=== PATIENT | male | born 1965 | race African-American/Black ===

== ENCOUNTER 2021-05-22 10:34 | Emergency (ER) | payer OTHER ==
--- OUTSIDE RECORDS SUMMARY | 2021-05-22 10:37 | XMS REPORT | Continuity of Care Document ---
:1965 Author Organization [facility] t Address [address] [place] [address] Care Team Providers Name Role Phone SANTOS RAM Primary Care Physician Unavailable LUIZA Attending Clinician Unavailable LUIZA Attending Clinician Unavailable Andres PÉREZ, H Attending Clinician Payers Payer Name Policy Type Policy Number Effective Date Expiration Date [facility] [id number] 2017 00:00:00 PLUS Problems Condition Condition Condition Status Onset Resolution Last Treating Co mments Source Name Details Category Date Date Treatment Clinician Date Hypertensi Hypertensi Disease Active 2012-06 U nivers on on 06-16 ity of 00:00: [place] 00 [facility] Branch 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 0-05 it y of ciency ciency 00:00: [place] virus virus 00 Medical (HIV) (HIV) Branch disease disease Depression Depression Disease Active 2011-06 U nivers 0-05 ity of 00:00: [place] 00 Medical Branch Anxiety Anxiety Disease Active 2011-06 Univers 0-05 ity of 00:00: [place] 00 Medical Branch Allergies, Adverse Reactions, Alerts Allergy Allergy Status Severity Reaction(s) Onset Inactive Treating Comm ents Source Name Type Date Date Clinician NO KNOWN Drug Active Univers ALLERGIE Class ity of S [facility] Social History Social Habit Start Date Stop Date Quantity Comments Source History of tobacco Cigarette Smoker University of use [facility] History SDOH University o f Alcohol Frequency [place] edical Branch History SDOH University o f Alcohol Std Drinks [facility] History SDOH University o f Alcohol Binge [place] [facility] Branch Exposure to Not sure University of SARS-CoV-2 (event) [facility] Alcohol intake 2021-05-03 2021-05-03 .71 /d University of 00:00:00 00:00:00 [facility] Tobacco Comment 2012-03-07 2012-03-07 pt smokes 3-4 Univer sity of 00:00:00 00:00:00 cvig a day since [place] Me driscoll he was 27 years Branch old, usually with drinking Alcohol Comment 2012-03-07 2012-03-07 pt drinks a 6 Univer sity of 00:00:00 00:00:00 pack while [facility] watching a Branch football game, has been to rehab for etoh in past Tobacco use and 2012-02-28 2012-02-28 Never used Universit y of exposure 00:00:00 00:00:00 [facility] Cigarettes smoked 2012-02-28 2012-02-28 Univers ity of current (pack per 00:00:00 00:00:00 [facility] ) - Reported Branch Cigarette 2012-02-28 2012-02-28 University of pack-years 00:00:00 00:00:00 [facility] Sex [birth year] At [birth year] Universit y of 00:00:00 00:00:00 [facility] Smoking Status Start Date Stop Date Source Current every day smoker 2012-02-28 00:00:00 Uni versity of [facility] Medications Ordered Filled Start Stop Current Ordering Indication Dosage Frequency Signature Comments Components Source Medication Medication Date Date Medication? Clinician (SIG) Name Name cyclopentol 2020-06 Yes [id number] 1[drp] Place 1 Univers ate 1 % 07-04 [id number] Drop in ity of ophthalmic 00:00: left eye 4 [place] drops 00 (four) Medical times Branch daily. prednisoLON 2020-06 Yes [id number] 1[drp] Place 1 Univers E acetate 07-04 [id number] Drop in ity o f (PRED 00:00: left eye 4 [place] FORTE) 1 % 00 (four) Medical ophthalmic times Branch suspension daily. drops cyclopentol 2020-06 Yes [id number] 1[drp] Place 1 Univers ate 1 % 07-04 [id number] Drop in ity of ophthalmic 00:00: left eye 4 [place] drops 00 (four) Medical times Branch daily. prednisoLON 2020-06 Yes [id number] 1[drp] Place 1 Univers E acetate 2- [id number] Drop in ity o f (PRED 00:00: left eye 4 [place] FORTE) 1 % 00 (four) Medical ophthalmic times Branch suspension daily. drops polymyxin B 2020-06 Yes [id number] 1[drp] Place 1 Univers sulf-trimet - [id number] Drop in ity of hoprim 00:00: left eye [place] 10,000 00 every 4 Medical unit- 1 (four) Branch mg/mL hours. ophthalmic drops erythromyci 2020-06 Yes [id number] .5[in_u Place 0.5 Univers n 5 mg/gram - [id number] s] Inches in i ty of (0.5 %) 00:00: left eye [place] ophthalmic 00 at Medical ointment bedtime. Branch polymyxin B 2020-06 Yes [id number] 1[drp] Place 1 Univers sulf-trimet - [id number] Drop in ity of hoprim 00:00: left eye [place] 10,000 00 every 4 Medical unit- 1 (four) Branch mg/mL hours. ophthalmic drops erythromyci 2020-06 Yes [id number] .5[in_u Place 0.5 Univers n 5 mg/gram - [id number] s] Inches in i ty of (0.5 %) 00:00: left eye [place] ophthalmic 00 at Medical ointment bedtime. Branch levoFLOXaci 2020-06 Yes [id number] 750mg Take 1 Univers n 0-20 tablet by ity of (LEVAQUIN) 00:00: mouth [place] 750 mg 00 every 24 Medical tablet (twenty-fo Branch ur) hours. levoFLOXaci 2020-06 Yes [id number] 750mg Take 1 Univers n 0-20 tablet by ity of (LEVAQUIN) 00:00: mouth [place] 750 mg 00 every 24 Medical tablet (twenty-fo Branch ur) hours. buPROPion Yes [id number] 150mg Take 1 Univers SR 5-27 tablet by ity of (WELLBUTRIN 00:00: mouth 2 [place] as SR) 150 mg 00 (two) Medical SR tablet times Branch daily. abacavir-do Yes [id number] 1{tbl} Take 1 Univers lutegravir- 5-27 tablet by ity of lamivudine 00:00: mouth [place] (TRIUMEQ) 00 daily. Medical 600-50-300 Branch mg per tablet buPROPion Yes [id number] 150mg Take 1 Univers SR 5-27 tablet by ity of (WELLBUTRIN 00:00: mouth 2 [place] SR) 150 mg 00 (two) Medical SR tablet times Branch daily. abacavir-do Yes [id number] 1{tbl} Take 1 Univers lutegravir- 5-27 tablet by ity of lamivudine 00:00: mouth [place] (TRIUMEQ) 00 daily. Medical 600-50-300 Branch mg per tablet Immunizations Ordered Filled Immunization Date Status Comments [facility] e Immunization Name Name Influenza Virus 2020-03-31 Completed Universit y of Vaccine Quad .5 mL 00:00:00 [facility] IM 6+ MO Branch Influenza Virus 2020-03-31 Completed Universit y of Vaccine Quad .5 mL 00:00:00 [facility] 6+ MO Branch Influenza Virus 2016-09-27 Completed Universit y of Vaccine Quad ID 00:00:00 [facility] Planol 18-64 YRS Branch Influenza Virus 2016-09-27 Completed Universit y of Vaccine Quad ID 00:00:00 [facility] ical 18-64 YRS Branch Pneumococcal 13 2014-11-11 Completed Universit y of Conjugate, PCV13 00:00:00 [facility] dical (Prevnar 13) Branch Pneumococcal 13 2014-11-11 Completed Universit y of Conjugate, PCV13 00:00:00 [facility] dical (Prevnar 13) Branch Influenza Virus 2014-04-15 Completed Universit y of Vaccine Quad IM 3+ 00:00:00 [facility] [place] [facility] Branch Influenza Virus 2014-04-15 Completed Universit y of Vaccine Quad IM 3+ 00:00:00 [facility] [place] [facility] Branch Influenza Virus 2013-04-16 Completed Universit y of Vaccine (3+ yrs) 00:00:00 [facility] Branch TDAP (ADACEL) 2013-04-16 Completed University of VACCINE 00:00:00 [facility] Twinrix (hep a/hep 2013-04-16 Completed Univ sity of b) 00:00:00 [facility] Pneumococcal 2013-04-16 Completed University o f Polysaccharide, 00:00:00 [facility] PPSV23 (PNEUMOVAX) Branch Influenza Virus 2013-04-16 Completed Universit y of Vaccine (3+ yrs) 00:00:00 [facility] dical Branch TDAP (ADACEL) 2013-04-16 Completed University of VACCINE 00:00:00 [facility] Twinrix (hep a/hep 2013-04-16 Completed Univer sity of b) 00:00:00 [facility] Pneumococcal 2013-04-16 Completed University o f Polysaccharide, 00:00:00 [facility] ical PPSV23 (PNEUMOVAX) Branch Hep B, Adol or Pedi 2012-08-11 Completed Unive rsity of Dosage 00:00:00 [facility] Hep B, Adol or Pedi 2012-08-11 Completed Unive rsity of Dosage 00:00:00 [facility] Hep B, Adol or Pedi 2012-07-07 Completed Unive rsity of Dosage 00:00:00 [facility] HEPATITIS A 2012-07-07 Completed University of 00:00:00 [facility] Hep B, Adol or Pedi 2012-07-07 Completed Unive rsity of Dosage 00:00:00 [facility] HEPATITIS A 2012-07-07 Completed University of 00:00:00 [facility] Influenza Virus 2012-02-28 Completed Universit y of Vaccine 00:00:00 [facility] PPD (TB) 2012-02-28 Completed University of 00:00:00 [facility] Influenza Virus 2012-02-28 Completed Universit y of Vaccine 00:00:00 [facility] PPD (TB) 2012-02-28 Completed University of 00:00:00 [facility] Vital Signs Vital Name Observation Time Observation Value Comments Source Body weight 2021-05-03 20:08:00 86.183 kg [facility] BMI 2021-05-03 20:08:00 25.07 kg/m2 [facility] Procedures This patient has no known procedures. Encounters Start End Encounter Admission Attending Care Care Encounter Source Date/Time Date/Time Type Type Clinicians Facility Department ID 2021-05-24 2021-05-24 Outpatient R SHA JARRETT [facility] [id number] Univers 14:30:00 14:30:00 SHA JARRETT [id number] ity of [facility] 2021-05-24 2021-05-24 Outpatient R SHA JARRETT [facility] [id number] Univers 14:30:00 14:30:00 SHA JARRETT [facility] [place] 2021-05-09 2021-05-09 Outpatient R MAURISIO JARRETTUKA [facility] [id number] Univers 09:30:00 09:30:00 SHA JARRETT [facility] [place] 2021-05-03 2021-05-03 Office Andres [facility] [id number] Univers 13:28:48 15:09:28 Visit Francisco LOPEZ [id number] itSandeep [id number] [facility] [id number] [facility] AND [address] [facility] Results This patient has no known results.
--- NOTE | 2021-05-22 11:24 | ER ---
Nurse's Notes [facility] Name: Sage Llamas Age: 56 yrs Sex: Male : 1965 Arrival Date: 05/22/2021 Time: 10:40 Bed 10 Private MD: Diagnosis: Panuveitis, bilateral Presentation: 05/22 10:53 Chief complaint: Patient states: Bilateral eye pain and blurry after starting ww Prednisone and Cyclopentoplate eye drops. He went to [facility] for a migraine and prescribed RX. Coronavirus screen: Vaccine status: Patient reports receiving the 2nd dose of the covid vaccine. Client denies travel out of the [place] in the last 14 days. Ebola Screen: Patient negative for fever greater than or equal to 101.5 degrees Fahrenheit, and additional compatible Ebola Virus Disease symptoms Patient denies exposure to infectious person. Patient denies travel to an Ebola-affected area in the 21 days before illness onset. Initial Sepsis Screen: Does the patient meet any 2 criteria? No. Patient's initial sepsis screen is negative. Does the patient have a suspected source of infection? No. Patient's initial sepsis screen is negative. Risk Assessment: Do you want to hurt yourself or someone else?. Onset of symptoms is unknown. 10:53 Method Of Arrival: Ambulatory ww 10:53 Acuity: MAINE 3 ww Triage Assessment: 10:58 General: Appears comfortable, well groomed, well developed, Behavior is calm, ww cooperative, appropriate for age. Pain: Complains of pain in right eye and left eye. EENT: Reports blurred vision pain photophobia. Neuro: Level of Consciousness is awake, alert, obeys commands, Oriented to person, place, time, situation, Appropriate for age Speech is normal. Cardiovascular: Denies chest pain, shortness of breath, Capillary refill < 3 seconds. Respiratory: Airway is patent Respiratory effort is even, unlabored, Respiratory pattern is regular, symmetrical. GI: No deficits noted. No signs and/or symptoms were reported involving the gastrointestinal system. : No deficits noted. No signs and/or symptoms were reported regarding the genitourinary system. Derm: No deficits noted. No signs and/or symptoms reported regarding the dermatologic system. Skin is intact, Skin is pink, warm \T\ dry. Musculoskeletal: No deficits noted. Historical: - Allergies: 10:58 No Known Allergies; ww - PMHx: 10:58 Migraine; Hypertensive disorder; ww - PSHx: 10:58 None; ww - Immunization history:: Client reports receiving the 2nd dose of the Covid vaccine. - Social history:: Smoking status: Patient reports the use of cigarette tobacco products, smokes one-half pack cigarettes per day. Screenin:24 Abuse screen: Denies threats or abuse. Nutritional screening: No deficits noted. ap3 Tuberculosis screening: No symptoms or risk factors identified. Fall Risk None identified. Vital Signs: 10:53 BP 107 / 68; Pulse 99; Resp 18; Temp 97.5; Pulse Ox 100% ; Weight 86.18 kg; Height 6 ww ft. 1 in. (185.42 cm); 10:53 Body Mass Index 25.07 (86.18 kg, 185.42 cm) ED Course: 10:40 Patient arrived in ED. rg4 10:58 Triage completed. ww 10:58 Arm band placed on left wrist. ww 11:03 Anibal Diaz PA is PHCP. Codie 11:03 Billy Sheldon MD is Attending Physician. 8 11:22 Rose Trujillo, RN is Primary Nurse. ap3 11:24 Patient has correct armband on for positive identification. Bed in low position. Call ap3 light in reach. Side rails up X 1. Pulse ox on. NIBP on. Door closed. Noise minimized. 11:24 No provider procedures requiring assistance completed. Patient did not have IV access ap3 during this emergency room visit. Administered Medications: No medications were administered Outcome: 11:23 Discharge ordered by . jr8 11:26 Discharged to home ambulatory. ap3 11:26 Condition: good 11:26 Discharge instructions given to patient, Instructed on discharge instructions, follow up and referral plans. Demonstrated understanding of instructions, follow-up care. 11:27 Patient left the ED. ap3 Signatures: Anibal Diaz PA PA 8 Dora Bishop 4 Rose Trujillo, TOSHIA RN ap3 Kareen Hunter RN RN
--- NOTE | 2021-05-22 11:24 | EDPHYS ---
Physician Documentation [facility] Name: Sage Llamas Age: 56 yrs Sex: Male : 1965 Arrival Date: 05/22/2021 Time: 10:40 Bed 10 Private MD: ED Physician Billy Sheldon HPI: 05/22 11:44 This 56 yrs old Black Male presents to ER via Ambulatory with complaints of Eye Problem.jr8 11:44 This is a 56-year-old male that presented to the emergency room for reevaluation of eye jr8 pain. Patient stated that he was recently diagnosed with iritis/uveitis by [facility] ophthalmology. Was started on cycloplegics and prednisone. Came to the emergency room today for reevaluation. Stated that he continues to have a mild blurriness to his vision but otherwise nothing else has changed. Did say that his right eye has now shown some symptoms. Currently was only being treated with his left eye. 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 Historical: - Allergies: 10:58 No Known Allergies; ww - PMHx: 10:58 Migraine; Hypertensive disorder; ww - PSHx: 10:58 None; ww - Immunization history:: Client reports receiving the 2nd dose of the Covid vaccine. - Social history:: Smoking status: Patient reports the use of cigarette tobacco products, smokes one-half pack cigarettes per day. ROS: 11:44 Constitutional: Negative for fever, chills, and weight loss, Cardiovascular: Negative jr8 for chest pain, palpitations, and edema, Respiratory: Negative for shortness of breath, cough, wheezing, and pleuritic chest pain, Abdomen/GI: Negative for abdominal pain, nausea, vomiting, diarrhea, and constipation, Back: Negative for injury and pain, MS/Extremity: Negative for injury and deformity, Skin: Negative for injury, rash, and discoloration, Neuro: Negative for headache, weakness, numbness, tingling, and seizure. 11:44 Eyes: Positive for blurry vision, pain, photophobia. Exam: 11:44 Visual Acuity: Visual acuity is within normal limits. jr8 11:44 Cardiovascular: Regular rate and rhythm with a normal S1 and S2. No gallops, murmurs, or rubs. Normal PMI, no JVD. No pulse deficits. Respiratory: Lungs have equal breath sounds bilaterally, clear to auscultation and percussion. No rales, rhonchi or wheezes noted. No increased work of breathing, no retractions or nasal flaring. Abdomen/GI: Soft, non-tender, with normal bowel sounds. No distension or tympany. No guarding or rebound. No evidence of tenderness throughout. Skin: Warm, dry with normal turgor. Normal color with no rashes, no lesions, and no evidence of cellulitis. MS/ Extremity: Pulses equal, no cyanosis. Neurovascular intact. Full, normal range of motion. Neuro: Awake and alert, GCS 15, oriented to person, place, time, and situation. Motor strength 5/5 in all extremities. Sensory grossly intact. 11:44 Eyes: Periorbital structures: appear normal, Pupils: equal, round, and reactive to light and accomodation, Extraocular movements: intact throughout, Conjunctiva: normal, Corneas: are normal, Sclera: no appreciated abnormality, Anterior chamber: normal, Lids and lashes: appear normal. Vital Signs: 10:53 BP 107 / 68; Pulse 99; Resp 18; Temp 97.5; Pulse Ox 100% ; Weight 86.18 kg; Height 6 ww ft. 1 in. (185.42 cm); 10:53 Body Mass Index 25.07 (86.18 kg, 185.42 cm) ww MDM: 11:03 Patient medically screened. jr8 11:21 Data reviewed: vital signs, nurses notes. Data interpreted: Pulse oximetry: on room air jr8 is 100 %. Interpretation: normal. Counseling: I had a detailed discussion with the patient and/or guardian regarding: the historical points, exam findings, and any diagnostic results supporting the discharge/admit diagnosis, the need for outpatient follow up, an opthalmologist, to return to the emergency department if symptoms worsen or persist or if there are any questions or concerns that arise at home. ED course: After discussing with patient. It appears that patient has an acute iritis/uveitis. Patient is currently on cycloplegic and prednisone for this. I explained to him that there is not much more we can do until he sees his sheet rock installer again which she is to see them this Saturday at 230. There has been no new presentation of symptoms. I discussed with him if he were to worsening point time to come back for further evaluation. Patient good with this at this time.. Administered Medications: No medications were administered Disposition Summary: 05/22/21 11:23 Discharge Ordered Location: Home jr8 Problem: new jr8 Symptoms: are unchanged jr8 Condition: Stable jr8 Diagnosis - Panuveitis, bilateral jr8 Followup: jr8 - With: Private Physician - When: 1 - 2 days - Reason: Recheck today's complaints, Continuance of care, Re-evaluation by your physician Discharge Instructions: - Discharge Summary Sheet jr8 - Uveitis jr8 Forms: - Medication Reconciliation Form jr8 - Thank You Letter jr8 - Antibiotic Education jr8 - Prescription Opioid Use jr8 Addendum: 05/23/2021 18:44 Co-signature as Attending Physician, Billy Sheldon MD I agree with the assessment and c [place] plan of care. Signatures: Billy Sheldon MD MD cha Roszak, Josh, PA PA jr8 Kareen Hunter, RN RN ww
[2021-05-22 11:34] VITALS: BP 107/68; TEMP 97.5; O2SAT 100
== END 2021-05-22 11:27 | disposition home or self-care (01) ==
LOC: ER 10:34
DX: H44.113 Panuveitis, bilateral (principal); I10 Essential (primary) hypertension; F17.210 Nicotine dependence, cigarettes, uncomplicated
CPT/HCPCS: 99283